=== PATIENT | female | born 1935 | race Caucasian/White ===

== ENCOUNTER → 2016-08-08 | Outpatient (CLI) | payer MEDICARE ==
[~2016-08-08] MED LIST: methylPREDNISolone 80 MG/ML (DEPO MEDROL) VIAL IM ONE
== END ==
LOC: PMC 12:06
PROVIDERS: ATTEND Family Medicine
DX: M51.16 Intervertebral disc disorders with radiculopathy, lumbar region (principal); E11.9 Type 2 diabetes mellitus without complications; I10 Essential (primary) hypertension; J44.9 Chronic obstructive pulmonary disease, unspecified
CPT/HCPCS: 62322; J1040

== ENCOUNTER → 2016-08-23 | Outpatient (CLI) | payer MEDICARE ==
[~2016-08-23] MED LIST changes: +AZIT250T81 PO; +CLON0.1T PO; +FLD5TCR PO; +FURO10VI IM; +FURO20TA4 PO; +HYDR-3702 PO; +LATA2.5D5 OP; +LEVA1.253 IH; +LEVO250T11 PO; +METO-274 PO; +MNTL10T PO; +MOME220A2 IH; +MTF500TCR PO; +OMEP20CA12 PO; +POTA10TA36 PO; +PRED10TA PO
--- NOTE | 2016-08-23 10:45 | PAIN MANAGEMENT ---
Date of note: 08/23/2016 Procedure: Lumbar epidural steroid injection This is an 81-year-old patient of Dr. Linus Rogel. The patient presents with a longstanding history of spinal stenosis. She had an epidural steroid injection approximately 2 weeks ago from [facility]. She has had some relief from that block in the area of her foot and the tourniquet type feeling that she has had in her leg. However, she is still experiencing radicular symptoms, primarily in the dermatome level in the left side of L5. Informed consent was achieved for an epidural steroid injection at L5-S1. Orders for procedure verified. Patient denies any bleeding tendencies. After informed consent obtained, the patient was positioned for the lumbar epidural steroid injection. The area was prepped and draped using aseptic technique. The skin and overlying tissues were localized using 3 mL of 1% Preservative-Free lidocaine using a 25-gauge 1.5-inch needle. A 20-gauge Tuohy needle was advanced, using "loss of resistance" technique, to the epidural space. No blood, cerebral spinal fluid, pain, or paresthesia noted on entry of the epidural space. A 1 mL solution of Depo-Medrol 80 mg was injected slowly without mass volume effect. The patient was placed in supine position 15 minutes prior to being released with proper leg strength and vitals. Pre- and post procedure vital signs stable with no sensory or motor deficit noted. Instruction on followup contact and care provided to the patient.
== END ==
LOC: PMC 10:01
PROVIDERS: ATTEND Family Medicine
DX: M48.06 Spinal stenosis, lumbar region (principal)
CPT/HCPCS: 62322; J1040

== ENCOUNTER → 2016-10-03 | Outpatient (CLI) | payer MEDICARE ==
--- NOTE | 2016-10-04 09:07 | PAIN MANAGEMENT ---
Date of note: 10/03/2016 Procedure: Epidural steroid injection at L5-S1 This is an 81-year-old patient of Dr. Linus Rogel. The patient presents for number 3 in a series of epidural steroid injections. She is has relief for approximately 3 to 5 days and then the pain returns for her quite quickly and very severely. She has radicular symptoms primarily in L5-S1 and L4-5. She had her last block at L5-S1 by me and had the most relief she has had. She is planning on seeing her neurosurgeon in October and hopefully able to get some relief from him, possibly surgically. Informed consent was achieved for an epidural steroid injection at L5-S1. I planned on doing it with fluoroscopy, however, she is unable to lie affectively in many positions, so she does best while sitting. Orders for procedure verified. Patient denies any bleeding tendencies. After informed consent obtained, the patient was positioned for the lumbar epidural steroid injection. The area was prepped and draped using aseptic technique. The skin and overlying tissues were localized using 3 mL of 1% Preservative-Free lidocaine using a 25-gauge 1.5-inch needle. A 20-gauge Tuohy needle was advanced, using "loss of resistance" technique, to the epidural space. No blood, cerebral spinal fluid, pain, or paresthesia noted on entry of the epidural space. A 1 mL solution of Depo-Medrol 80 mg was injected slowly without mass volume effect. The patient was placed in supine position 15 minutes prior to being released with proper leg strength and vitals. Pre- and post procedure vital signs stable with no sensory or motor deficit noted. Instruction on followup contact and care provided to the patient.
== END ==
LOC: PMC 16:20
PROVIDERS: ATTEND Family Medicine
PROC: 3E0S33Z Introduction of Anti-inflammatory into Epidural Space, Percutaneous Approach (ICD-10-PCS; principal; 2016-10-03)
DX: M48.06 Spinal stenosis, lumbar region (principal)